=== PATIENT | female | born 1955 | race Caucasian/White ===

== ENCOUNTER 2016-10-27 15:53 | Day surgery (SDC) | payer BC ==
[~2016-10-27] VITALS: Ht 162.7 cm; Wt 102.5 kg
[2016-10-27] VITALS (9 sets, daily range): BP systolic 103–165; BP diastolic 40–83; PULSE 80–109; TEMP 98.5–99.1
[2016-10-27] MEDS ORDERED: XALATAN EYE DROPS OD (16:32)
[2016-10-27] MEDS ORDERED: DHEA 10 MG TAB1 EACH PO (16:34)
[2016-10-27] MEDS ORDERED: PREMARIN VAG42.5 GM VG (16:35)
[2016-10-28 02:45] VITALS: BP 115/52; PULSE 93; TEMP 98.8
[2016-10-28 06:21] VITALS: BP 94/43; PULSE 94; TEMP 98.3
[2016-10-28 09:06] VITALS: BP 109/52; PULSE 84; TEMP 97.9
== END 2016-10-28 10:50 | disposition home or self-care (01) ==
LOC: SURG 15:53 → SDCO 15:53
DX: K35.80 Unspecified acute appendicitis (principal)
CPT/HCPCS: OP; J0330; J0694; J1100; J1885; J2250; J2270; J2405; J3010; J7120

== ENCOUNTER → 2017-02-26 | Outpatient (REF) ==
[~2017-02-26] MED LIST: DHEA 10 MG TAB1 EACH PO; PREMARIN VAG42.5 GM VG; XALATAN EYE DROPS OD
[2017-02-26 12:15] LABS: THYROID STIMULATING HORMONE 0.791 uIU/mL (0.465-4.680)
== END ==
LOC: ZLAB.WCH 10:47
PROVIDERS: Family Medicine
DX: Z01.89 Encounter for other specified special examinations (principal)

== ENCOUNTER → 2017-02-28 | Outpatient (REF) | LOC: COL.CARD 12:52 | DX: R00.2 Palpitations (principal); E05.90 Thyrotoxicosis, unspecified without thyrotoxic crisis or storm ==

== ENCOUNTER → 2019-04-10 | Outpatient (REF) | LOC: ZLAB.WCH 09:42 | DX: Z01.89 Encounter for other specified special examinations (principal) ==